=== PATIENT | male | born 1960 | race Caucasian/White ===

== ENCOUNTER 2020-07-07 11:16 | Emergency (ER) | payer SELFPAY ==
[2020-07-07 11:22] VITALS: BP 150/92; PULSE 94; TEMP 98.2; BMI 23.3
[2020-07-07] MEDS ORDERED: IBUPROFEN 600 MG TABLET (FP) PO ONE ×2 (11:56→11:57)
== END 2020-07-07 12:15 | disposition home or self-care (01) ==
LOC: JERFT 11:16 → JER 11:16 → JERFT 12:15
DX: L60.0 Ingrowing nail (principal)
CPT/HCPCS: 99283-25

== ENCOUNTER 2022-06-11 14:17 | Emergency (ER) | payer OTHER ==
[2022-06-11 14:22] VITALS: TEMP 98.8; BMI 26.1
[2022-06-11] MEDS ORDERED: predniSONE 20 MG TABLET (UD) PO ONE (16:08)
[2022-06-11] MEDS ORDERED: valACYclovir HCL 1000 MG TABLET PO ONE (16:10)
[2022-06-11] MEDS ORDERED: predniSONE 20 MG TABLET (UD) ONE (16:49)
[2022-06-11] MEDS ORDERED: valACYclovir HCL 500 MG TABLET (FP) ONE (16:51)
[2022-06-11 17:29] VITALS: BP 143/83; PULSE 63; RESP 14
== END 2022-06-11 17:53 | disposition home or self-care (01) ==
LOC: JER 14:17
DX: G51.0 Bell's palsy (principal)
CPT/HCPCS: 99283-25